=== PATIENT | female | born 1950 ===

== ENCOUNTER 2016-06-28 08:19 | Day surgery (SDC) | payer MEDICARE ==
[2016-06-22 14:38] VITALS: BMI 36.1
[~2016-06-28 08:19] MED LIST: Carbachol 0.01% IO ONE; Chondroitin/Hyaluronate Opth Syringe KIT (0.55 ml-0.5 ml) IO ONE; Cyclopentolate 1% Opth (2 ml) OS SCH; Flurbiprofen 0.03% Opht SOLN OS SCH; Hyaluronidase Human, Recombi 150 U/ML VIAL ONE; Lactated Ringer's 500 ML IV ONE; Lidocaine 2% Inj (20ml) ONE; Phenylephrine 2.5% Opht Soln OS SCH; Povidone Iodine Ophthalmic 5% Soln ONE; Tetracaine 0.5% Ophth (OR ONLY) ONE; Tobramycin/Dexamethasone (Tobradex) Opth Sol (2.5 ml) ONE; Tobramycin/Dexamethasone OPHT OINT ONE; Tropicamide 1% Opht SOLUTION OS SCH
[2016-06-28 09:05] VITALS: RESP 20; TEMP 97.3; O2SAT 98
[2016-06-28] MEDS ORDERED: Lactated Ringer's 500 ML IV ONE (09:35)
[2016-06-28] MEDS ORDERED: Propofol 10 mg/ml Inj (20 ML) ONE (09:40)
[2016-06-28 10:52] VITALS: BP 133/71; PULSE 72
[2016-06-28] MEDS ORDERED: Ciprofloxacin 0.3% OPTH SOLN OS SCH (15:00)
--- NOTE | 2016-06-30 19:03 | OP ---
PROCEDURE DATE: 06/28/2016 PREOPERATIVE DIAGNOSIS: CATARACT LEFT EYE. POSTOPERATIVE DIAGNOSIS: CATARACT LEFT EYE. OPERATIVE PROCEDURE: CATARACT EXTRACTION WITH IMPLANT LEFT EYE. ANESTHESIA TYPE: LOCAL, STAND-BY. ANESTHESIOLOGIST: COMPLICATIONS: NONE. PROCEDURE: Local anesthesia was achieved using a mixture of 1% lidocaine and Amphadase. The patient was then prepped and draped in the usual sterile fashion for ophthalmic surgery. Betadin e drops were placed into the eye. A lid speculum was used and a sideport incision was made using a 1 5 degree blade. Viscoelastic was used to fill the anterior chamber and a 2.7 millimeter slit blade w as used to create a surgical opening. Additional viscoelastic was placed into the eye and a capsulor rhexis was performed. Hydrodissection and delineation were then carried out. Phacoemulsification of the nucleus was performed with ease and cortical cleanup was achieved without difficulty. The capsul ar bag was refilled using viscoelastic and a posterior chamber lens was inserted through the existing wound and placed into the capsular bag and easily centered. All viscoelastic was then aspirated from the eye and Miochol was instilled for good symmetric pupilla ry constriction. The sideport wound was hydrated as necessary and a good watertight closure was obse rved at the conclusion of the case. A TobraDex soaked collagen shield was then placed over the eye. The lid speculum was removed. TobraDex ointment was placed onto the eye and a patch and shield were placed. The patient tolerated the procedure well. Chaz Tan MD cc: [id number] TT: 06/30/2016 19:02:18 sn
== END 2016-06-28 10:45 | disposition home or self-care (01) ==
LOC: C.SDS 08:19
PROVIDERS: ATTEND Ophthalmology
DX: H26.9 Unspecified cataract (principal)
CPT/HCPCS: 66984; 82948; J2704; J3470; J7120; V2632